=== PATIENT | male | born 1930 | race Caucasian/White ===

== ENCOUNTER 2017-03-18 13:00 | Emergency (ER) | payer MEDICARE, BC ==
[~2017-03-18] VITALS: Ht 175.3 cm; Wt 67.5 kg
[~2017-03-18 13:00] MED LIST: APIX2.5T PO; CALC0.25 PO; CALC1TAB87 PO; FERR150C PO; FINA5TAB2 PO; FURO1TAB62 PO; GABA100C4 PO; HYDR-4107 PO; METO25TA6 PO; MOME16.7 INH; OMEP20TA PO; POTA10TA2 PO; PRED5TAB PO; PROC20005 SQ; SPIRCAP INH; STOO100C; TERA10CA3 PO; TYLE325T PO; VENTAER INH; ZOCO20TA PO
[2017-03-18 13:06] VITALS: BP 129/60; PULSE 63; RESP 18; TEMP 97.7; O2SAT 97
[2017-03-18] MEDS ORDERED: MAGNESIUM CITRATE SOLN 300 ML BTL PO ONE (13:30)
[2017-03-18] MEDS ORDERED: GLYCERIN ADULT 2 GM SUPP RECTAL ONE (13:30)
[2017-03-18] MEDS ORDERED: MIRA3350 PO (13:46)
--- NOTE | 2017-03-18 13:47 | PD ---
HPI Chief Complaint: GI Complaint Time Seen by Provider: 13:14 Travel History International Travel<30 days: No Contact w/Intl Traveler<30days: No Traveled to known affect area: No History of Present Illness HPI Is an 86 year-old woman presents emergency department complaining that he feels stopped up and impacted. He takes pain medicines regularly and states that he usually goes to bathroom daily. He takes Colace regularly and uses suppositories or enemas once every other month or so as needed for constipation. Feels like he has to the bowel movement was unable to pass hard stools. He is on blood thinners and did note a small amount of blood. No abdominal pain or distention. No vomiting. No other complaints. History Past Medical History Narrative Medical COPD Chronic back pain Pacemaker Hypertension on hyperlipidemia CAD, history of stents On Eliquis but unclear why, denies A. fib Social History Alcohol Use: No Tobacco Use: No Allergies-Medications (Allergen,Severity, Reaction): Coded Allergies: No Known Allergies (Unverified , 03/15/17) Reported Meds & Prescriptions Reported Meds & Active Scripts Active Reported Calcium 600 with Vitamin D (Calcium Carbonate-Cholecalciferol) 600-400 mg-Unit Tab 1 Tab PO DAILY Asmanex Hfa 13 GM Inh (Mometasone 13 GM Inh) 100 Mcg/Act Inh 2 Puff INH DAILY Spiriva Handihaler (Tiotropium Inh) 18 Mcg Cap 18 Mcg INH EVERY OTHER DAY 1 capsule = 18 mcg Ventolin Hfa 18 GM Inh (Albuterol Sulfate) 90 Mcg/Act Aer 2 Puff INH PRN Prednisone 5 Mg Tab 5 Mg PO EVERY OTHER DAY Procrit Inj (Epoetin Ian) 20,000 Unit/Ml Inj 20,000 Units SQ [id number] Eliquis (Apixaban) 2.5 Mg Tab 2.5 Mg PO BID Stool Softener (Docusate Sodium) 100 Mg Cap Unknown Dose PRN Zocor (Simvastatin) 20 Mg Tab 20 Mg PO DAILY Hydrocodone-Acetaminophen 5-300 Mg Tab 1 Tab PO Q4H PRN Tylenol (Acetaminophen) 325 Mg Tab 650 Mg PO BID Metoprolol Succinate ER 24 HR (Metoprolol Succinate) 25 Mg Tab 25 Mg PO DAILY Calcitriol 0.25 Mcg Cap 0.25 Mcg PO DAILY Potassium Chloride ER (Potassium Chloride) 10 Meq Tab 10 Meq PO PRN Lasix (Furosemide) 20 Mg Tab 20 Mg PO PRN Ferrex 150 (Polysaccharide Iron Complex) 150 Mg Cap 150 Mg PO DAILY Finasteride 5 Mg Tab 5 Mg PO DAILY Do not crush. Terazosin (Terazosin HCl) 10 Mg Cap 10 Mg PO DAILY Review of Systems Except as stated in HPI: all other systems reviewed are Neg Physical Exam Narrative GENERAL: Well-appearing 86 year-old woman, no acute distress. SKIN: Focused skin assessment warm/dry. CARDIOVASCULAR: Regular rate and rhythm. No murmur appreciated. RESPIRATORY: No accessory muscle use. Clear to auscultation. Breath sounds equal bilaterally. GASTROINTESTINAL: Abdomen soft, non-tender, nondistended. Hepatic and splenic margins not palpable. MUSCULOSKELETAL: No obvious deformities. No clubbing. No cyanosis. No edema. NEUROLOGICAL: Awake and alert. No obvious cranial nerve deficits. Motor grossly within normal limits. Normal speech. PSYCHIATRIC: Appropriate mood and affect; insight and judgment normal. RECTAL: Hard stool in the rectal vault. Broken out but unable to remove much. Data Data Last Documented VS Vital Signs Date Time Temp Pulse Resp B/P (MAP) Pulse Ox O2 Delivery O2 Flow Rate FiO2 03/18/17 13:06 97.7 63 18 129/60 (83) 97 Orders Orders Glycerin Adult Supp (Glycerin Adult Supp (03/18/17 13:30) Magnesium Citrate Liq (Citroma Liq) (03/18/17 13:30) [facility] Medical Decision Making Medical Screen Exam Complete: Yes Emergency Medical Condition: Yes Differential Diagnosis Constipation, impaction, other Narrative Course Medical decision making 86-year-old man complaining of constipation symptoms. Looks well. Didn't the disimpaction the bedside. We'll treat with magnesium citrate and glycerin suppository. Diagnosis Primary Impression: Constipation Additional Instructions: Continue MiraLAX as needed until symptoms resolve. Follow-up with her primary doctor in the next 2-4 days. Med/Other Pt SpecificInfo: Prescription(s) given Scripts Polyethylene Glycol 3350 Powder (Miralax Powder) 17 Gm Powd 17 GM PO DAILY for Constipation, #1 CAN 0 Refills Mix and dissolve one measuring cap-ful (17 grams) in water or juice. Prov: Blu Chapa MD 03/18/17 Disposition: 01 DISCHARGE HOME Condition: Stable Blu Chapa MD Mar 18, 2017 13:47
== END 2017-03-18 14:30 | disposition home or self-care (01) ==
LOC: PHED 13:00
DX: K59.00 Constipation, unspecified (principal)
CPT/HCPCS: 99284

== ENCOUNTER 2017-05-02 14:13 | Observation (INO) | payer MEDICARE, BC ==
[2017-05-02] VITALS (8 sets, daily range): BP systolic 160–192; BP diastolic 71–83; PULSE 60–70; RESP 17–20; TEMP 96.4–97.8; O2SAT 96–98
[~2017-05-02] VITALS: Ht 175.3 cm; Wt 64.9 kg
[~2017-05-02 14:13] MED LIST changes: +DOCU1CAP66; -GABA100C4 PO; +METO1TAB42 PO; -METO25TA6 PO; +MIRA3350 PO; -OMEP20TA PO; -STOO100C
[2017-05-02] MEDS ORDERED: SODIUM CHLORIDE 0.9% FLUSH 10 ML FLUSH IVF PRN (14:30)
--- NOTE | 2017-05-02 14:34 | PD ---
HPI Chief Complaint: chest pain Time Seen by Provider: 14:22 Travel History International Travel<30 days: No Contact w/Intl Traveler<30days: No Traveled to known affect area: No History of Present Illness HPI This patient has been having spells of left upper chest pain for the last 5 days. They last about 1 minute and resolve. They're not exertional. They feel like an aching. He had a spell about a half hour ago while he was in the dentist office and they sent him here. He is currently pain-free. History of ND in 1 stent placed 12 years ago. He denies any stress testing or catheterization over the last several years. No alleviating factors. No exacerbating factors. Pain is of moderate severity. PFSH Past Medical History Hx Anticoagulant Therapy: Yes (Eliquis) Cancer: No Cardiovascular Problems: Yes (HTN, ND, pacemaker) High Cholesterol: Yes COPD: Yes Diabetes: No Endocrine: No Gastrointestinal Disorders: Yes (HX GASTRIC ULCER) Genitourinary: Yes (BPH) Hepatitis: No Hiatal Hernia: Yes Hypertension: Yes Immune Disorder: No Musculoskeletal: Yes (LOWER BACK ; ARTHRITIS; LEFT LEG PAIN) Neurologic: No Psychiatric: No Reproductive: No Respiratory: Yes (COPD) Thyroid Disease: No Past Surgical History Abdominal Surgery: Yes (COLON RESECTION 10/12) AICD: No Body Medical Devices: CARDIAC STENT Cardiac Surgery: Yes (CARDIAC STENT 10/07 ; [id number]) Eye Surgery: Yes (BILATERAL CATARACT SX) Joint Replacement: No Oral Surgery: Yes (EGD 04/16 ; T&A (ADULT)) Pacemaker: Yes Other Surgery: Yes Social History Alcohol Use: No Tobacco Use: No Substance Use: No Allergies-Medications (Allergen,Severity, Reaction): Coded Allergies: No Known Allergies (Unverified Allergy, Unknown, 04/26/17) Reported Meds & Prescriptions Reported Meds & Active Scripts Active Miralax Powder (Polyethylene Glycol 3350 Powder) 17 Gm Powd 17 Gm PO DAILY Mix and dissolve one measuring cap-ful (17 grams) in water or juice. Reported Calcium 600 with Vitamin D (Calcium Carbonate-Cholecalciferol) 600-400 mg-Unit Tab 1 Tab PO DAILY Spiriva Handihaler (Tiotropium Inh) 18 Mcg Cap 18 Mcg INH EVERY OTHER DAY 1 capsule = 18 mcg Ventolin Hfa 18 GM Inh (Albuterol Sulfate) 90 Mcg/Act Aer 2 Puff INH PRN Prednisone 5 Mg Tab 5 Mg PO EVERY OTHER DAY Procrit Inj (Epoetin Ian) 20,000 Unit/Ml Inj 20,000 Units SQ [id number] Eliquis (Apixaban) 2.5 Mg Tab 2.5 Mg PO BID Stool Softener (Docusate Sodium) 100 Mg Cap Unknown Dose PRN Zocor (Simvastatin) 20 Mg Tab 20 Mg PO DAILY Hydrocodone-Acetaminophen 5-300 Mg Tab 1 Tab PO Q4H PRN Tylenol (Acetaminophen) 325 Mg Tab 650 Mg PO BID Metoprolol Succinate ER 24 HR (Metoprolol Succinate) 25 Mg Tab 25 Mg PO DAILY Calcitriol 0.25 Mcg Cap 0.25 Mcg PO DAILY Potassium Chloride ER (Potassium Chloride) 10 Meq Tab 10 Meq PO PRN Lasix (Furosemide) 20 Mg Tab 20 Mg PO PRN Ferrex 150 (Polysaccharide Iron Complex) 150 Mg Cap 150 Mg PO DAILY Finasteride 5 Mg Tab 5 Mg PO DAILY Do not crush. Terazosin (Terazosin HCl) 10 Mg Cap 10 Mg PO DAILY Review of Systems General / Constitutional: No: Fever Eyes: No: Visual changes HENT: No: Headaches Cardiovascular: Positive: Chest Pain or Discomfort Respiratory: No: Shortness of Breath Gastrointestinal: No: Abdominal Pain Genitourinary: No: Dysuria Musculoskeletal: No: Pain Skin: No Rash Neurologic: No: Weakness Psychiatric: No: Depression Endocrine: No: Polydipsia Hematologic/Lymphatic: No: Easy Bruising Physical Exam Narrative GENERAL: Well-nourished, well-developed patient in no apparent distress. SKIN: Focused skin assessment reveals no rash and nodules. Skin is Warm and dry. HEAD: Atraumatic. Normocephalic. EYES: Pupils equal and round. No scleral icterus. No injection or drainage. ENT: No nasal bleeding or discharge. Mucous membranes pink and moist. NECK: Trachea midline. No JVD. CARDIOVASCULAR: Regular rate and rhythm. No murmur appreciated. RESPIRATORY: No accessory muscle use. Clear to auscultation. Breath sounds equal bilaterally. GASTROINTESTINAL: Abdomen soft, non-tender, nondistended. Hepatic and splenic margins not palpable. MUSCULOSKELETAL: No obvious deformities. No clubbing. No cyanosis. No edema. NEUROLOGICAL: Awake and alert. No obvious cranial nerve deficits. Motor grossly within normal limits. Normal speech. PSYCHIATRIC: Appropriate mood and affect; insight and judgment normal. Data Data Last Documented VS Vital Signs Date Time Temp Pulse Resp B/P (MAP) Pulse Ox O2 Delivery O2 Flow Rate FiO2 05/02/17 15:32 60 18 160/71 (100) 98 Room Air 05/02/17 14:20 97.8 Orders Orders Electrocardiogram (05/02/17 14:28) Basic Metabolic Panel (Bmp) (05/02/17 14:28) Ckmb (Isoenzyme) Profile (05/02/17 14:28) Complete Blood Count With Diff (05/02/17 14:28) Troponin I (05/02/17 14:28) Chest, Single Ap (05/02/17 14:28) Ecg Monitoring (05/02/17 14:28) Iv Access Insert/Monitor (05/02/17 14:28) Oximetry (05/02/17 14:28) Sodium Chloride 0.9% Flush (Ns Flush) (05/02/17 14:30) Admit Order (Ed Use Only) (05/02/17 15:49) Labs Laboratory Tests Test 05/02/17 14:50 White Blood Count 7.9 TH/MM3 Red Blood Count 3.40 MIL/MM3 Hemoglobin 10.8 GM/DL Hematocrit 33.1 % Mean Corpuscular Volume 97.4 FL Mean Corpuscular Hemoglobin 31.6 PG Mean Corpuscular Hemoglobin Concent 32.5 % Red Cell Distribution Width 13.9 % Platelet Count 193 TH/MM3 Mean Platelet Volume 7.6 FL Neutrophils (%) (Auto) 82.1 % Lymphocytes (%) (Auto) 10.5 % Monocytes (%) (Auto) 4.3 % Eosinophils (%) (Auto) 0.5 % Basophils (%) (Auto) 2.6 % Neutrophils # (Auto) 6.6 TH/MM3 Lymphocytes # (Auto) 0.8 TH/MM3 Monocytes # (Auto) 0.3 TH/MM3 Eosinophils # (Auto) 0.0 TH/MM3 Basophils # (Auto) 0.2 TH/MM3 CBC Comment DIFF FINAL Differential Comment Blood Urea Nitrogen 21 MG/DL Creatinine 1.90 MG/DL Random Glucose 149 MG/DL Calcium Level 8.7 MG/DL Sodium Level 137 MEQ/L Potassium Level 4.2 MEQ/L Chloride Level 103 MEQ/L Carbon Dioxide Level 25.4 MEQ/L Anion Gap 9 MEQ/L Estimat Glomerular Filtration Rate 34 ML/MIN Total Creatine Kinase 48 U/L Troponin I LESS THAN 0.02 NG/ML MDM Medical Decision Making Medical Screen Exam Complete: Yes Emergency Medical Condition: Yes Medical Record Reviewed: Yes Differential Diagnosis Differential diagnosis includes ND, angina, pericarditis, pleurisy, GERD, anxiety. Narrative Course I have reviewed the patient's electronic medical record. Reviewed his visit from last month for constipation IV placed I reviewed the EKG shows paced rhythm without acute ST elevation or ectopy I reviewed the chest x-ray which is normal Extended cardiac monitoring shows paced rhythm without ectopy CBC is normal Metabolic profile shows renal sufficiency CK is normal Troponin is normal Patient is anticoagulated with Eliquis Patient has history of CAD and now having atypical chest pain spells. He will be a 23 hour observation on telemetry in the chest pain center in order to rule out cardiac cause of his symptoms. Hospitalist has been paged to discuss. Diagnosis Primary Impression: Chest pain in adult Additional Impressions: Cardiac pacemaker Coronary artery disease Qualified Codes: I25.10 - Atherosclerotic heart disease of [place] coronary artery without angina pectoris; I25.84 - Coronary atherosclerosis due to calcified coronary lesion Admitting Information Admitting Physician Requests: Observation Marquise Nguyen MD May 02, 2017 14:34
[2017-05-02 14:58] LABS: AUTOMATED NEUTROPHIL # 6.6 TH/MM3 (1.8-7.7); BASOPHIL # 0.2 TH/MM3 (0-0.2); BASOPHIL % 2.6 % (0.0-2.0); EOSINOPHIL % 0.5 % (0.0-4.0); HEMATOCRIT 33.1 % (39.0-51.0); LYMPH % 10.5 % (9.0-44.0); LYMPHOCYTE # 0.8 TH/MM3 (1.0-4.8); MEAN CELL VOLUME 97.4 FL (80.0-100.0); MEAN CORPUSCULAR HEMOGLOBIN 31.6 PG (27.0-34.0); MEAN CORPUSCULAR HGB CONC 32.5 % (32.0-36.0); MONO % 4.3 % (0.0-8.0); NEUT % 82.1 % (16.0-70.0); PLATELET COUNT 193 TH/MM3 (150-450); RED CELL DISTRIBUTION WIDTH 13.9 % (11.6-17.2); WHITE BLOOD COUNT 7.9 TH/MM3 (4.0-11.0)
[2017-05-02 14:59] LABS: HEMO FLAGS DIFF FINAL
[2017-05-02 15:09] LABS: CHLORIDE 103 MEQ/L (98-107); POTASSIUM 4.2 MEQ/L (3.5-5.1); SODIUM (NA) 137 MEQ/L (136-145)
[2017-05-02 15:12] LABS: ANION GAP 9 MEQ/L (5-15); BICARBONATE 25.4 MEQ/L (21.0-32.0)
[2017-05-02 15:13] LABS: BLOOD UREA NITROGEN 21 MG/DL (7-18)
[2017-05-02 15:16] LABS: GLOMERULAR FILTRATION RATE 34 ML/MIN (>89)
--- NOTE | 2017-05-02 15:19 | RADRPT ---
EXAM DATE/TIME: 05/02/2017 14:42 [facility] COMPARISON: No previous studies available for comparison. INDICATIONS : Chest pain, nausea. MEDICAL HISTORY : None. SURGICAL HISTORY : Pacemaker. Coronary artery stent. ENCOUNTER: Initial ACUITY: 1 day PAIN SCORE: 3/10 LOCATION: Left chest FINDINGS: A single view of the chest demonstrates the lungs to be symmetrically aerated without evidence of mas s, infiltrate or effusion. Dual-lead pacemaker in place. The cardiomediastinal contours are unremark able. Osseous structures are intact. CONCLUSION: 1. No acute cardiopulmonary disease. Jayy Phelps MD on May 02, 2017 at 15:16 Board Certified Radiologist. This report was verified electronically.
[2017-05-02 15:23] LABS: CREATINE KINASE 48 U/L (39-308)
[2017-05-02] MEDS ORDERED: ACETAMINOPHEN 325 MG TAB PO PRN (16:00)
[2017-05-02] MEDS ORDERED: ONDANSETRON HCL 4 MG/2 ML VIAL IVP PRN (16:00)
[2017-05-02] MEDS ORDERED: MAGNESIUM HYDROXIDE SUSP 30 ML CUP PO PRN (16:00)
[2017-05-02] MEDS ORDERED: SENNOSIDES 8.6 MG TAB PO PRN (16:00)
[2017-05-02] MEDS ORDERED: BISACODYL 10 MG SUPP RECTAL PRN (16:00)
[2017-05-02] MEDS ORDERED: NALOXONE HCL 0.4 MG/ML AMP IV PUSH PRN (16:00)
[2017-05-02] MEDS ORDERED: SODIUM CHLORIDE 0.9% FLUSH 10 ML FLUSH IV FLUSH PRN (16:00)
--- NOTE | 2017-05-02 16:38 | HHI.HP ---
[facility] Service [facility] Primary Care Physician Yanick Payton M.D. Admission Diagnosis Chest pain Diagnoses: (1) Chest pain in adult Chief Complaint: Chest pain Travel History International Travel<30 Days: No Contact w/Intl Traveler <30 Da: No Traveled to Known Affected Are: No History of Present Illness Mr. Walls is an 86-year-old male patient with a known medical history of CAD with CA and stent placement, pacemaker placement, dyslipidemia and COPD who presented to the ED with complaints of chest pain and nausea. Patient states that he has been nauseous intermittently for the last 5 days with one bout of nausea. He states while at the dentist today the nausea became worse and he developed a stabbing sensation in his left chest. The pain came on suddenly, lasted roughly 1 minute and then subsided, rated a 2/10 on pain scale with no known aggravating or relieving factors, denies any radiation of pain. No reproducible chest pain or discomfort to palpation. Denies any recent illness including fever, chills, cough, headache, shortness of breath, abdominal pain, diarrhea or dysuria. Does admit to a poor appetite recently. Patient did undergo stent placement for CA 12 years ago and also a pacemaker placement in 2011. Follow[address] Victoria in the outpatient setting, was last seen in December 2016 and at that time an ECHO was performed as well as recommendations for a stress test prior to an elective surgery patient was going to have. At that time patient refused chemical stress test, denies any prior cardiac stress testing. At the time of assessment patient denies any chest pain but does state it comes and goes. Review of Systems Constitutional: DENIES: Fever, Chills Eyes: DENIES: Blurred vision Ears, nose, mouth, throat: DENIES: Throat pain Respiratory: DENIES: Cough, Shortness of breath Cardiovascular: COMPLAINS OF: Chest pain, Palpitations Gastrointestinal: COMPLAINS OF: Constipation, Nausea, DENIES: Abdominal pain, Black stools, Diarrhea, Vomiting Genitourinary: DENIES: Urinary frequency Musculoskeletal: DENIES: Joint pain, Back pain, Neck pain Psychiatric: DENIES: Anxiety Except as stated in HPI: all other systems reviewed are Neg Past Family Social History Past Medical History CAD with CA history and stent placement Pacemaker placement for bradycardia Dyslipidemia History of duodenal ulcer COPD BPH Chronic lower back pain Arthritis Hypertension Past Surgical History Colon resection in 2010 Pacemaker insertion EGD 2-12 Bilateral cataracts Reported Medications Active Miralax Powder (Polyethylene Glycol 3350 Powder) 17 Gm Powd 17 Gm PO DAILY Mix and dissolve one measuring cap-ful (17 grams) in water or juice. Reported Calcium 600 with Vitamin D (Calcium Carbonate-Cholecalciferol) 600-400 mg-Unit Tab 1 Tab PO DAILY Spiriva Handihaler (Tiotropium Inh) 18 Mcg Cap 18 Mcg INH EVERY OTHER DAY 1 capsule = 18 mcg Ventolin Hfa 18 GM Inh (Albuterol Sulfate) 90 Mcg/Act Aer 2 Puff INH PRN Prednisone 5 Mg Tab 5 Mg PO EVERY OTHER DAY Procrit Inj (Epoetin Ian) 20,000 Unit/Ml Inj 20,000 Units SQ [id number] Eliquis (Apixaban) 2.5 Mg Tab 2.5 Mg PO BID Stool Softener (Docusate Sodium) 100 Mg Cap Unknown Dose PRN Zocor (Simvastatin) 20 Mg Tab 20 Mg PO DAILY Hydrocodone-Acetaminophen 5-300 Mg Tab 1 Tab PO Q4H PRN Tylenol (Acetaminophen) 325 Mg Tab 650 Mg PO BID Metoprolol Succinate ER 24 HR (Metoprolol Succinate) 25 Mg Tab 25 Mg PO DAILY Calcitriol 0.25 Mcg Cap 0.25 Mcg PO DAILY Potassium Chloride ER (Potassium Chloride) 10 Meq Tab 10 Meq PO PRN Lasix (Furosemide) 20 Mg Tab 20 Mg PO PRN Ferrex 150 (Polysaccharide Iron Complex) 150 Mg Cap 150 Mg PO DAILY Finasteride 5 Mg Tab 5 Mg PO DAILY Do not crush. Terazosin (Terazosin HCl) 10 Mg Cap 10 Mg PO DAILY Allergies: Coded Allergies: No Known Allergies (Unverified Allergy, Unknown, 04/26/17) Active Ordered Medications Current Medications Medications (Trade) Dose Ordered Sig/Stefan Route Start Time Stop Time Status Last Admin (NS Flush) 2 ml UNSCH PRN IVF 05/02/17 14:30 (NS Flush) 2 ml UNSCH PRN IV FLUSH 05/02/17 16:00 UNV (NS Flush) 2 ml BID IV FLUSH 05/02/17 21:00 UNV (Tylenol) 650 mg Q4H PRN PO 05/02/17 16:00 UNV (Zofran Inj) 4 mg Q6H PRN IVP 05/02/17 16:00 UNV (Narcan Inj) 0.4 mg UNSCH PRN IV PUSH 05/02/17 16:00 UNV (Rossy-Colace) 1 tab BID PO 05/02/17 21:00 UNV (Milk Of Magnesia Liq) 30 ml Q12H PRN PO 05/02/17 16:00 UNV (Senokot) 17.2 mg Q12H PRN PO 05/02/17 16:00 UNV (Dulcolax Supp) 10 mg DAILY PRN RECTAL 05/02/17 16:00 UNV (Spiriva Inh) 18 mcg EVERY OTHER DAY INH 05/04/17 09:00 UNV Family History Denies any significant family medical history. Social History Denies any current tobacco use, quit cigarette smoking 15 years ago. Admits to occasional alcohol intake. Denies any illicit drug use. Physical Exam Vital Signs Vital Signs Date Time Temp Pulse Resp B/P (MAP) Pulse Ox O2 Delivery O2 Flow Rate FiO2 05/02/17 15:32 60 18 160/71 (100) 98 Room Air 05/02/17 14:41 18 98 Room Air 05/02/17 14:20 97.8 60 18 179/81 (113) 98 Physical Exam GENERAL: This is a well-nourished, well-developed male patient, lying in bed in no apparent distress. SKIN: No rashes, ecchymoses or lesions. Warm and dry. HEENT: Atraumatic. Normocephalic. No temporal or scalp tenderness. Pupils equal round and reactive. Extraocular motions intact. No scleral icterus. No injection or drainage. Nose without bleeding. Throat without erythema, tonsillar hypertrophy or exudate. Uvula midline. Airway patent. NECK: Trachea midline. No JVD. Supple. CARDIOVASCULAR: Regular rate and rhythm. No gallops or rubs. 2/6 systolic murmur noted. RESPIRATORY: Clear to auscultation. Breath sounds equal bilaterally. No wheezes , rales, or rhonchi. GASTROINTESTINAL: Abdomen soft, non-tender, nondistended. No guarding. MUSCULOSKELETAL: Extremities without clubbing, cyanosis, or edema. No joint tenderness, effusion, or edema noted. NEUROLOGICAL: Awake and alert. Cranial nerves II through XII intact. Motor and sensory grossly within normal limits. Five out of 5 muscle strength in all muscle groups. Normal speech. Laboratory Laboratory Tests Test 05/02/17 14:50 White Blood Count 7.9 Red Blood Count 3.40 Hemoglobin 10.8 Hematocrit 33.1 Mean Corpuscular Volume 97.4 Mean Corpuscular Hemoglobin 31.6 Mean Corpuscular Hemoglobin Concent 32.5 Red Cell Distribution Width 13.9 Platelet Count 193 Mean Platelet Volume 7.6 Neutrophils (%) (Auto) 82.1 Lymphocytes (%) (Auto) 10.5 Monocytes (%) (Auto) 4.3 Eosinophils (%) (Auto) 0.5 Basophils (%) (Auto) 2.6 Neutrophils # (Auto) 6.6 Lymphocytes # (Auto) 0.8 Monocytes # (Auto) 0.3 Eosinophils # (Auto) 0.0 Basophils # (Auto) 0.2 CBC Comment DIFF FINAL Differential Comment Blood Urea Nitrogen 21 Creatinine 1.90 Random Glucose 149 Calcium Level 8.7 Sodium Level 137 Potassium Level 4.2 Chloride Level 103 Carbon Dioxide Level 25.4 Anion Gap 9 Estimat Glomerular Filtration Rate 34 Total Creatine Kinase 48 Troponin I LESS THAN 0.02 Result Diagram: 05/02/17 1450 05/02/17 1450 Imaging Last Impressions Chest X-Ray 05/02/17 1428 Signed Impressions: Service Date/Time: Tuesday, May 02, 2017 14:42 - CONCLUSION: 1. No acute cardiopulmonary disease. MD Guicho Harman VTE Risk Assessment Caprini VTE Risk Assessment: Mod/High Risk (score >= 2) Caprini Risk Assessment Model Point Value = 1 Point Value = 2 Point Value = 3 Point Value = 5 Age 41-60 Minor surgery BMI > 25 kg/m2 Swollen legs Varicose veins or History of unexplained or recurrent spontaneous Oral contraceptives or hormone replacement Sepsis (< 1 month) Serious lung disease, including pneumonia (< 1 month) Abnormal pulmonary function Acute myocardial infarction Congestive heart failure (< 1 month) History of inflammatory bowel disease Medical patient at bed rest Age 61-74 Arthroscopic surgery Major open surgery (> 45 min) Laparoscopic surgery (> 45 min) Malignancy Confined to bed (> 72 hours) Immobilizing plaster cast Central venous access Age >= 75 History of VTE Family history of VTE Factor V Leiden Prothrombin [id number] Lupus anticoagulant Anticardiolipin antibodies Elevated serum homocysteine Heparin-induced thrombocytopenia Other congenital or acquired thrombophilia Stroke (< 1 month) Elective arthroplasty Hip, pelvis, or leg fracture Acute spinal cord injury (< 1 month) Prophylaxis Regimen Total Risk Factor Score Risk Level Prophylaxis Regimen 0-1 Low Early ambulation 2 Moderate Order ONE of the following: *Sequential Compression Device (SCD) *Heparin 5000 units SQ BID 3-4 Higher Order ONE of the following medications: *Heparin 5000 units SQ TID *Enoxaparin/Lovenox 40 mg SQ daily (WT < 150 kg, CrCl > 30 mL/min) *Enoxaparin/Lovenox 30 mg SQ daily (WT < 150 kg, CrCl > 10-29 mL/min) *Enoxaparin/Lovenox 30 mg SQ BID (WT < 150 kg, CrCl > 30 mL/min) AND/OR *Sequential Compression Device (SCD) 5 or more Highest Order ONE of the following medications: *Heparin 5000 units SQ TID (Preferred with Epidurals) *Enoxaparin/Lovenox 40 mg SQ daily (WT < 150 kg, CrCl > 30 mL/min) *Enoxaparin/Lovenox 30 mg SQ daily (WT < 150 kg, CrCl > 10-29 mL/min) *Enoxaparin/Lovenox 30 mg SQ BID (WT < 150 kg, CrCl > 30 mL/min) AND *Sequential Compression Device (SCD) Assessment and Plan Problem List: (1) Chest pain in adult ICD Code: R07.9 - Chest pain, unspecified Status: Acute Plan: Patient has been admitted to the chest pain center. Serial EKGs and serial troponins have been ordered for ruling out ACS purposes. Initial troponin flat, follow trends. CXR reviewed showing no acute cardiopulmonary disease. Continue cardiac telemetry to rule out any arrhythmias. Heart healthy diet. Plan for NPO after midnight. If ACS ruled out by serial EKGs and troponins, will undergo a chemical cardiac stress test tomorrow morning. Further hospitalization and treatment will depend on nuclear imaging results. Continue to follow. Supplement O2 to keep sats >92%. Zofran available PRN for nausea. (2) Hypertension ICD Code: I10 - Essential (primary) hypertension Status: Chronic Plan: Bp elevated on presentation, systolic in the 170's. Continue home Hytrin and Metoprolol, continue Lasix and potassium supplementation. Continue to monitor BP trend. Clonidine PRN. (3) Chronic kidney disease (CKD) ICD Code: N18.9 - Chronic kidney disease, unspecified Status: Chronic Plan: Creatinine 1.9 and GFR 34 on presentation. According to this is patient's baseline. Follows with Dr. Shelton in the outpatient setting for CKD. Supportive care. Recheck BMP in am, follow. (4) Iron deficiency anemia ICD Code: D50.9 - Iron deficiency anemia, unspecified Status: Chronic Plan: Continue home iron supplementation. Patient receives Epogen shots q2 weeks with Dr. Shelton. (5) BPH (benign prostatic hyperplasia) ICD Code: N40.0 - Benign prostatic hyperplasia without lower urinary tract symptoms Status: Chronic Plan: Continue home Proscar and Hytrin. (6) Constipation ICD Code: K59.00 - Constipation, unspecified Plan: Rossy-colace scheduled. Senokot, Dulcolax and Milk of magnesium available PRN. (7) COPD (chronic obstructive pulmonary disease) ICD Code: J44.9 - Chronic obstructive pulmonary disease, unspecified Status: Chronic Plan: Continue home Spiriva. Duonebs available PRN as needed. DVT Prophylaxis: VIDYAs. Lourdes Ornelas May 02, 2017 16:38
[2017-05-02] MEDS ORDERED: RESP: ALBUTEROL 2.5 MG/IPRATROPIUM 0.5 MG NEB (PRN) NEB (17:15)
--- NOTE | 2017-05-02 20:01 | EKG ---
Date Performed: 05/02/2017 Time Performed: 14:18:38 PTAGE: 86 years EKG: ELECTRONIC ATRIAL PACEMAKER ABNORMAL RHYTHM ECG NO PREVIOUS TRACING DOCTOR: Hi Dominguez Interpretating Date/Time 05/02/2017 20:01:17
[2017-05-02] MEDS: APIXABAN 2.5 MG TABLET PO SCH (21:16)
[2017-05-02] MEDS: DOCUSATE SODIUM 50 MG/SENNA 8.6 MG TAB PO SCH (21:16)
[2017-05-02] MEDS: cloNIDine HCL 0.1 MG TAB PO PRN (21:16)
[2017-05-02] MEDS: SODIUM CHLORIDE 0.9% FLUSH 10 ML FLUSH IV FLUSH SCH (21:17)
[2017-05-03] VITALS: BP 163/79; PULSE 60; RESP 20; TEMP 96.9; O2SAT 95
[2017-05-03 04:00] VITALS: BP 161/81; PULSE 68; RESP 20; TEMP 97.1; O2SAT 96
[2017-05-03 06:39] LABS: AUTOMATED NEUTROPHIL # 5.2 TH/MM3 (1.8-7.7); BASOPHIL # 0.1 TH/MM3 (0-0.2); BASOPHIL % 1.2 % (0.0-2.0); EOSINOPHIL # 0.3 TH/MM3 (0-0.4); EOSINOPHIL % 3.6 % (0.0-4.0); HEMATOCRIT 31.6 % (39.0-51.0); HEMO FLAGS DIFF FINAL; LYMPH % 19.9 % (9.0-44.0); LYMPHOCYTE # 1.6 TH/MM3 (1.0-4.8); MEAN CELL VOLUME 94.8 FL (80.0-100.0); MEAN CORPUSCULAR HGB CONC 32.7 % (32.0-36.0); NEUT % 63.3 % (16.0-70.0); PLATELET COUNT 169 TH/MM3 (150-450); RED BLOOD COUNT 3.34 MIL/MM3 (4.50-5.90); RED CELL DISTRIBUTION WIDTH 13.4 % (11.6-17.2); WHITE BLOOD COUNT 8.2 TH/MM3 (4.0-11.0)
[2017-05-03 06:55] LABS: CHLORIDE 105 MEQ/L (98-107); POTASSIUM 3.9 MEQ/L (3.5-5.1); SODIUM (NA) 142 MEQ/L (136-145)
[2017-05-03 07:00] LABS: ANION GAP 8 MEQ/L (5-15); BICARBONATE 28.6 MEQ/L (21.0-32.0); BLOOD UREA NITROGEN 20 MG/DL (7-18)
[2017-05-03 07:03] LABS: ALT (GPT) 13 U/L (12-78); AST (GOT) 10 U/L (15-37); GLOMERULAR FILTRATION RATE 36 ML/MIN (>89)
[2017-05-03 07:05] LABS: TOTAL BILIRUBIN ADULT 0.4 MG/DL (0.2-1.0)
[2017-05-03 07:06] LABS: ALKALINE PHOSPHATASE 47 U/L (45-117)
[2017-05-03 08:00] VITALS: BP 199/89; PULSE 73; RESP 20; TEMP 97.3; O2SAT 95
[2017-05-03] MEDS: cloNIDine HCL 0.1 MG TAB PO PRN (08:44)
[2017-05-03] MEDS: APIXABAN 2.5 MG TABLET PO SCH (08:46)
[2017-05-03] MEDS: DOCUSATE SODIUM 50 MG/SENNA 8.6 MG TAB PO SCH (08:46)
[2017-05-03] MEDS: SODIUM CHLORIDE 0.9% FLUSH 10 ML FLUSH IV FLUSH SCH (08:47)
[2017-05-03] MEDS ORDERED: PRAVASTATIN SOD 40 MG TAB PO SCH (09:00)
[2017-05-03] MEDS ORDERED: FINASTERIDE 5 MG TAB PO SCH (09:00)
[2017-05-03] MEDS ORDERED: FUROSEMIDE 20 MG TAB PO SCH (09:00)
[2017-05-03] MEDS ORDERED: METOPROLOL SUCCINATE 25 MG EXTENDED RELEASE TAB PO SCH (09:00)
[2017-05-03] MEDS ORDERED: POTASSIUM CHLORIDE 10 MEQ CONTROLLED RELEASE TAB PO SCH (09:00)
[2017-05-03] MEDS ORDERED: TERAZOSIN HCL 5 MG CAP PO SCH (09:00)
[2017-05-03] MEDS ORDERED: POLYSACCHARIDE IRON COMPLEX 150 MG CAP PO SCH (09:00)
--- NOTE | 2017-05-03 11:36 | RADRPT ---
EXAM DATE/TIME: 05/03/2017 09:56 [facility] COMPARISON: No previous studies available for comparison. INDICATIONS : Left sided chest pain with nausea. Angina. Coronary artery disease. DOSE: 27.1 mCi Tc99m Myoview at stress. 8.6 mCi Tc99m Myoview at rest. 0.4 mg Lexiscan STRESS SYMPTOMS: Stomach pain. EJECTION FRACTION: 52% MEDICAL HISTORY : Hypertension. Chronic obstructive pulmonary disease. Myocardial infarction. SURGICAL HISTORY : Colon resection. Pacemaker. Coronary artery stent. ENCOUNTER: Initial ACUITY: 1 day PAIN SCALE: 5/10 LOCATION: Left chest TECHNIQUE: The patient underwent pharmacologic stress with infusion of prescribed dose. Continuous ECG tracing was monitored during stress. Gated SPECT imaging was performed after stress and conventional SPECT i maging was performed at rest. The examination was performed on a SPECT/CT scanner, both attenuation and non-corrected datasets were reviewed. FINDINGS: DISTRIBUTION: The maximum perfused segment at stress is in the anterolateral wall. PERFUSION STUDY: Is mildly diminished relative perfusion involving the posterobasal/posterolateral wall without eviden ce of redistribution GATED STUDY: There is intact wall motion and thickening without hypokinetic or dyskinetic segments. CONCLUSION: Mild fixed posterobasal perfusion abnormality without evidence of ischemia RISK CATEGORY: Low (<1% Annual Mortality Rate) Moises Salguero MD on May 03, 2017 at 11:28 Board Certified Radiologist. This report was verified electronically.
[2017-05-03 12:00] VITALS: BP 172/74; PULSE 61; RESP 20; TEMP 97.3; O2SAT 96
[2017-05-03] MEDS ORDERED: AMLO5TAB2 PO (12:12)
[2017-05-03] MEDS ORDERED: amLODIPine BESYLATE 5 MG TAB PO ONE (12:15)
--- NOTE | 2017-05-03 12:18 | HHI.PR ---
Subjective Remarks Follow up chest pain. Patient seen and examined lying in bed comfortably post Nuclear stress test. Awake and alert, oriented x 3. Denies any chest pain today. Denies any further nausea or vomiting. Requesting to eat. Afebrile. BP elevated today. Reviewed results of nuclear stress test with patient. All questions answered. Objective Vitals Vital Signs Date Time Temp Pulse Resp B/P (MAP) Pulse Ox O2 Delivery O2 Flow Rate FiO2 05/03/17 08:00 97.3 73 20 199/89 (125) 95 05/03/17 04:00 97.1 68 20 161/81 (107) 96 05/03/17 00:00 96.9 60 20 163/79 (107) 95 05/02/17 20:55 97 21 05/02/17 20:00 96.8 69 20 192/79 (116) 96 05/02/17 18:25 96.4 60 17 180/83 (115) 97 05/02/17 17:33 70 05/02/17 17:07 05/02/17 16:56 60 18 170/78 (108) 98 Room Air 05/02/17 15:32 60 18 160/71 (100) 98 Room Air 05/02/17 14:41 18 98 Room Air 05/02/17 14:20 97.8 60 18 179/81 (113) 98 I/O 05/02/17 05/02/17 05/02/17 05/03/17 05/03/17 05/03/17 07:00 15:00 23:00 07:00 15:00 23:00 Intake Total 200 ml 240 ml Balance 200 ml 240 ml Intake Oral 200 ml 240 ml # Voids 5 # Bowel Movements 0 Result Diagram: 05/03/17 0612 05/03/17 0612 Imaging Last Impressions Myocardial Perfusion Scan Nuc Med 05/03/17 0000 Signed Impressions: Service Date/Time: Wednesday, May 03, 2017 09:56 - CONCLUSION: Mild fixed posterobasal perfusion abnormality without evidence of ischemia RISK CATEGORY : Low (<1%% Annual Mortality Rate) Moises Salguero MD Chest X-Ray 05/02/17 1428 Signed Impressions: Service Date/Time: Tuesday, May 02, 2017 14:42 - CONCLUSION: 1. No acute cardiopulmonary disease. Jayy Phelps MD Objective Remarks GENERAL: This is a well-nourished, well-developed male patient, lying in bed in no apparent distress. SKIN: No rashes, ecchymoses or lesions. Warm and dry. HEENT: Atraumatic. Normocephalic. No temporal or scalp tenderness. Pupils equal round and reactive. Extraocular motions intact. No scleral icterus. No injection or drainage. Nose without bleeding. Throat without erythema, tonsillar hypertrophy or exudate. Uvula midline. Airway patent. NECK: Trachea midline. No JVD. Supple. CARDIOVASCULAR: Regular rate and rhythm. No gallops or rubs. RESPIRATORY: Clear to auscultation. Breath sounds equal bilaterally. No wheezes , rales, or rhonchi. GASTROINTESTINAL: Abdomen soft, non-tender, nondistended. No guarding. MUSCULOSKELETAL: Extremities without clubbing, cyanosis, or edema. No joint tenderness, effusion, or edema noted. NEUROLOGICAL: Awake and alert. Cranial nerves II through XII intact. Motor and sensory grossly within normal limits. Five out of 5 muscle strength in all muscle groups. Normal speech. A/P Problem List: (1) Chest pain in adult ICD Code: R07.9 - Chest pain, unspecified Status: Acute Plan: Patient has been admitted to the chest pain center. Serial EKGs and serial troponins have been ordered for ruling out ACS purposes which are all unremarkable. Serial troponin flat. CXR reviewed showing no acute cardiopulmonary disease. No arrhythmias noted on cardiac telemetry overnight. Continue heart healthy diet. Underwent a chemical cardiac stress test this morning with an EF 52%. No ischemia noted. (2) Hypertension ICD Code: I10 - Essential (primary) hypertension Status: Chronic Plan: Bp elevated on presentation, systolic in the 170's, continued to be elevated. Continue home Hytrin and Metoprolol, continue Lasix and potassium supplementation. Added amlodipine to regimen. Encouraged to monitor BP at home and f.u PCP. (3) Chronic kidney disease (CKD) ICD Code: N18.9 - Chronic kidney disease, unspecified Status: Chronic Plan: Creatinine 1.9 and GFR 34 on presentation, BMP reviewed today showing 1.[address] Shelton in the outpatient setting for CKD. Supportive care. (4) Iron deficiency anemia ICD Code: D50.9 - Iron deficiency anemia, unspecified Status: Chronic Plan: Continue home iron supplementation. Patient receives Epogen shots q2 weeks with Dr. Shelton. (5) BPH (benign prostatic hyperplasia) ICD Code: N40.0 - Benign prostatic hyperplasia without lower urinary tract symptoms Status: Chronic Plan: Continue home Proscar and Hytrin. (6) Constipation ICD Code: K59.00 - Constipation, unspecified Plan: Continue home bowel regimen. (7) COPD (chronic obstructive pulmonary disease) ICD Code: J44.9 - Chronic obstructive pulmonary disease, unspecified Status: Chronic Plan: Continue home Spiriva. Duonebs available PRN as needed. DVT Prophylaxis: SCDs. Eliquis. Discharge Planning Will discharge home today with recommendations to f/u with PCP, GI and cardiology in the outpatient setting. Lourdes Aceves May 03, 2017 12:18
--- NOTE | 2017-05-03 12:19 | HHI.DCPOC ---
Discharge Care Plan Diagnosis: (1) Hypertension (2) Chest pain in adult (3) COPD (chronic obstructive pulmonary disease) (4) Iron deficiency anemia (5) Chronic kidney disease (CKD) (6) BPH (benign prostatic hyperplasia) (7) Constipation Goals to Promote Your Health * To prevent worsening of your condition and complications * To maintain your health at the optimal level Directions to Meet Your Goals Take your medications as prescribed Follow your dietary instruction Follow activity as directed Keep your appointments as scheduled Take your immunizations and boosters as scheduled If your symptoms worsen call your PCP, if no PCP go to Urgent Care Center or Emergency Room Smoking is Dangerous to Your Health. Avoid second hand smoke Call the 24-hour hour crisis hotline for domestic abuse at Lourdes Aceves May 03, 2017 12:18
--- NOTE | 2017-05-03 13:55 | EKG ---
Date Performed: 05/02/2017 Time Performed: 19:26:27 PTAGE: 86 years EKG: ELECTRONIC ATRIAL PACEMAKER ABNORMAL RHYTHM ECG PREVIOUS TRACING : 05/02/2017 14.18 Since previous tracing, no significant change noted DOCTOR: Carlo Tony Interpretating Date/Time 05/03/2017 13:53:55
--- NOTE | 2017-05-03 13:55 | EKG ---
Date Performed: 05/02/2017 Time Performed: 21:13:11 PTAGE: 86 years EKG: ELECTRONIC ATRIAL PACEMAKER ABNORMAL RHYTHM ECG PREVIOUS TRACING : 05/02/2017 19.26 Since previous tracing, no significant change noted DOCTOR: Carlo Tony Interpretating Date/Time 05/03/2017 13:53:43
[2017-05-03] MEDS ORDERED: REGADENOSON INJ 0.4 MG/5 ML SYR IV ONE (15:51)
--- NOTE | 2017-05-03 16:44 | TR ---
Date Performed: 05/03/2017 Time Performed: 10:24:41 DOCTOR: Carlo Tony DRUG LIST: CLINICAL HISTORY: REASON FOR TEST: Chest pain REASON FOR ENDING: OBSERVATION: CONCLUSION: Lexiscan stress test was performed under standard four minute protocol. Radionuclid e was injected one minute prior to ending the test. No electrocardiographic abormalities were present to suggest ischemia. Nuclear imaging and interpretation are pending. COMMENTS:
[2017-05-04] MEDS ORDERED: TIOTROPIUM BROMIDE 18 MCG INH INH SCH (09:00)
== END 2017-05-03 13:33 | disposition home or self-care (01) ==
LOC: PHED 14:13 → PHEDA 15:50 → PH3B 17:00
PROVIDERS: ADMIT Hospitalist; ATTEND Hospitalist
DX: R07.9 Chest pain, unspecified (principal); I25.10 Atherosclerotic heart disease of native coronary artery without angina pectoris; I12.9 Hypertensive chronic kidney disease with stage 1 through stage 4 chronic kidney disease, or unspecified chronic kidney disease; N18.9 Chronic kidney disease, unspecified; D50.9 Iron deficiency anemia, unspecified; J44.9 Chronic obstructive pulmonary disease, unspecified; I25.2 Old myocardial infarction; E78.5 Hyperlipidemia, unspecified; N40.0 Benign prostatic hyperplasia without lower urinary tract symptoms; K59.00 Constipation, unspecified; Z87.11 Personal history of peptic ulcer disease; Z95.0 Presence of cardiac pacemaker; Z95.5 Presence of coronary angioplasty implant and graft
CPT/HCPCS: 71010; 78452; 80048; 80053; 82550; 84484; 85025; 93005; 93017; 99285; A9502; G0378; J2785

== ENCOUNTER 2017-06-17 15:00 | Emergency (ER) | payer MEDICARE, BC ==
[~2017-06-17] VITALS: Ht 175.3 cm; Wt 69.5 kg
[~2017-06-17 15:00] MED LIST changes: +AMLO5TAB2 PO; -MOME16.7 INH
[2017-06-17 15:08] VITALS: BP 135/58; PULSE 78; RESP 18; TEMP 97.8; O2SAT 92
[2017-06-17] MEDS ORDERED: APIX2.5T PO (15:26)
[2017-06-17] MEDS ORDERED: FERR150C (15:26)
[2017-06-17] MEDS ORDERED: DILT120T PO (15:26)
[2017-06-17] MEDS ORDERED: DONE10TA7 PO (15:26)
[2017-06-17] MEDS ORDERED: ATOR40TA16 PO (15:26)
[2017-06-17] MEDS ORDERED: NAME10TA PO (15:26)
--- NOTE | 2017-06-17 16:10 | PD ---
HPI Chief Complaint: Pain: Acute or Chronic Time Seen by Provider: 15:39 Travel History International Travel<30 days: No Contact w/Intl Traveler<30days: No Traveled to known affect area: No History of Present Illness HPI 87-year-old male with PMH of COPD, HTN, CKD, PVD, CAD status post stenting, chronic anemia, pacemaker, lumbar disc prolapse with radiculopathy, previous laminectomy ON ELIQUIS presents to the ED for evaluation of 03/14 middle back pain, radiating down the left leg. Patient endorses numbness, tingling, weakness of the leg. He states this is chronic but also states that he's been having to use his walker for the last 3 days which is unusual for him. He is unsure about the onset of the pain. He endorses edema of the left leg for the last 3 days. No previous history of this. He states that he feels as if he has difficulty even lifting the leg. He denies calf pain, recent history of long periods of immobilization. He denies saddle anesthesia, fecal or urinary incontinence. The patient endorses diminished appetite. The patient denies fever, chills, nausea, vomiting, cough, chest pain, abdominal pain or dysuria. He saw his primary care provider yesterday and had an outpatient CT of the lumbar spine performed. He sees a pain management physician. He takes 5 mg hydrocodone up to 4 times a day as needed. Last dose just before coming in. He states that these medications are not touching the pain. is at bedside and states that the patient has some memory loss. She states that the patient has "been puny" for the last few days. He is followed by Dr. Payton PCP, Dr. Dewey Neuro. [facility] Past Medical History Hx Anticoagulant Therapy: Yes Heart Rhythm Problems: Yes Cancer: No Cardiovascular Problems: Yes (PACER,) High Cholesterol: Yes COPD: Yes Diabetes: No Endocrine: No Gastrointestinal Disorders: Yes (HX GASTRIC ULCER) Genitourinary: Yes (BPH) Hepatitis: No Hiatal Hernia: Yes Hypertension: Yes Immune Disorder: No Implanted Vascular Access Dvce: Yes Musculoskeletal: Yes (LOWER BACK ; ARTHRITIS; LEFT LEG PAIN) Neurologic: No Psychiatric: No Reproductive: No Respiratory: Yes Thyroid Disease: No Past Surgical History Abdominal Surgery: Yes (COLON RESECTION 10/12) AICD: No Body Medical Devices: CARDIAC STENT Cardiac Surgery: Yes (CARDIAC STENT 10/07 ; [id number]) Eye Surgery: Yes (BILATERAL CATARACT SX) Joint Replacement: No Oral Surgery: Yes (EGD 04/16 ; T&A (ADULT)) Pacemaker: Yes Other Surgery: Yes Social History Alcohol Use: No Tobacco Use: No Substance Use: No Allergies-Medications (Allergen,Severity, Reaction): Coded Allergies: No Known Allergies (Verified Allergy, Unknown, 06/17/17) Reported Meds & Prescriptions Reported Meds & Active Scripts Active Amlodipine (Amlodipine Besylate) 5 Mg Tab 5 Mg PO DAILY 30 Days Miralax Powder (Polyethylene Glycol 3350 Powder) 17 Gm Powd 17 Gm PO DAILY Mix and dissolve one measuring cap-ful (17 grams) in water or juice. Reported Atorvastatin (Atorvastatin Calcium) 40 Mg Tab 40 Mg PO HS Eliquis (Apixaban) 2.5 Mg Tab 2.5 Mg PO BID Diltiazem (Diltiazem HCl) 120 Mg Tab 240 Mg PO DAILY Ferrex 150 (Polysaccharide Iron Complex) 150 Mg Iron Cap Namenda (Memantine) 10 Mg Tab 10 Mg PO DAILY Donepezil 10 Mg Tab 10 Mg PO HS Calcium 600 with Vitamin D (Calcium Carbonate-Cholecalciferol) 600-400 mg-Unit Tab 1 Tab PO DAILY Prednisone 5 Mg Tab 5 Mg PO EVERY OTHER DAY Stool Softener (Docusate Sodium) 100 Mg Cap Unknown Dose PRN Metoprolol Succinate ER 24 HR (Metoprolol Succinate) 25 Mg Tab 25 Mg PO DAILY Calcitriol 0.25 Mcg Cap 0.25 Mcg PO DAILY Finasteride 5 Mg Tab 5 Mg PO DAILY Do not crush. Terazosin (Terazosin HCl) 10 Mg Cap 10 Mg PO DAILY Review of Systems Except as stated in HPI: all other systems reviewed are Neg Physical Exam Narrative GENERAL: Well-nourished, well-developed white male in no acute distress. SKIN: Focused skin assessment warm/dry. HEAD: Normocephalic. EYES: No scleral icterus. No injection or drainage. NECK: Supple, trachea midline. No JVD or lymphadenopathy. CARDIOVASCULAR: Regular rate and rhythm without murmurs, gallops, or rubs. RESPIRATORY: Breath sounds clear and equal bilaterally. No accessory muscle use. GASTROINTESTINAL: Abdomen soft, non-tender, nondistended. Active bowel sounds. No palpable masses. No pulsatile masses. MUSCULOSKELETAL: No cyanosis. 1+ edema of the left leg to the knee. Homans sign positive on the left. Palpable DP pulses bilaterally. Dopplerable pulses equal bilaterally. 5/5 strength of plantarflexion, dorsiflexion, knee and hip flexion bilaterally. BACK: Nontender without obvious deformity. No CVA tenderness. Data Data Last Documented VS Vital Signs Date Time Temp Pulse Resp B/P (MAP) Pulse Ox O2 Delivery O2 Flow Rate FiO2 06/17/17 18:18 57 18 125/57 (79) 98 Room Air 06/17/17 15:08 97.8 Orders Orders Us Leg Venous Doppler (06/17/17 16:36) ^ Insert Iv (06/17/17 16:40) Comprehensive Metabolic Panel (06/17/17 16:40) Complete Blood Count With Diff (06/17/17 16:40) Morphine Inj (Morphine Inj) (06/17/17 17:15) Cta Thor Abd Aorta W Iv C W3d (06/17/17 ) Iodixanol 320 Inj (Rad Ct) (Visipaque 32 (06/17/17 18:25) Acetamin-Hydrocod 325-5 Mg ([place] 5-325 (06/17/17 19:15) Labs Laboratory Tests Test 06/17/17 17:00 White Blood Count 10.2 TH/MM3 Red Blood Count 2.99 MIL/MM3 Hemoglobin 8.8 GM/DL Hematocrit 28.3 % Mean Corpuscular Volume 94.5 FL Mean Corpuscular Hemoglobin 29.5 PG Mean Corpuscular Hemoglobin Concent 31.2 % Red Cell Distribution Width 14.6 % Platelet Count 189 TH/MM3 Mean Platelet Volume 7.6 FL Neutrophils (%) (Auto) 73.2 % Lymphocytes (%) (Auto) 10.3 % Monocytes (%) (Auto) 14.7 % Eosinophils (%) (Auto) 1.1 % Basophils (%) (Auto) 0.7 % Neutrophils # (Auto) 7.4 TH/MM3 Lymphocytes # (Auto) 1.1 TH/MM3 Monocytes # (Auto) 1.5 TH/MM3 Eosinophils # (Auto) 0.1 TH/MM3 Basophils # (Auto) 0.1 TH/MM3 CBC Comment DIFF FINAL Differential Comment Blood Urea Nitrogen 27 MG/DL Creatinine 1.90 MG/DL Random Glucose 124 MG/DL Total Protein 7.0 GM/DL Albumin 2.9 GM/DL Calcium Level 8.7 MG/DL Alkaline Phosphatase 70 U/L Aspartate Amino Transf (AST/SGOT) 24 U/L Alanine Aminotransferase (ALT/SGPT) 18 U/L Total Bilirubin 0.6 MG/DL Sodium Level 138 MEQ/L Potassium Level 3.7 MEQ/L Chloride Level 103 MEQ/L Carbon Dioxide Level 27.8 MEQ/L Anion Gap 7 MEQ/L Estimat Glomerular Filtration Rate 34 ML/MIN [facility] Medical Decision Making Medical Screen Exam Complete: Yes Emergency Medical Condition: Yes Differential Diagnosis Acute on chronic back pain versus radiculopathy versus cauda equina syndrome versus DVT versus aortic dissection versus AAA versus other Narrative Course 87-year-old male with PMH of COPD, HTN, CKD, PVD, CAD status post stenting, chronic anemia, pacemaker, lumbar disc prolapse with radiculopathy, previous laminectomy ON ELIQUIS presents to the ED for evaluation of 10/10 middle back pain, radiating down the left leg. Patient endorses numbness, tingling, weakness of the leg. He's been having to use his walker which is unusual. He endorses edema of the left leg for the last 3 days. No previous history of this. He states that he feels as if he has difficulty even lifting the leg. He takes 5 mg hydrocodone up to 4 times a day as needed. Last dose just before coming in. He states that these medications are not touching the pain. is at bedside and states the patient has "been puny" for the last few days. He is followed by Dr. Payton PCP, Dr. Dewey Neuro. Patient is hypotensive, O2 sats 92% on room air on presentation. Physical exam reveals positive Homans sign on the left but is otherwise unremarkable. Discussed the patient with Dr. Carey. He is agreeable to evaluation for DVT and possible AAA/dissection. IV was established. Patient was administered 2 mg of morphine. Per chart review the patient had a negative stress test on 05/03/17. Outpatient CT performed 06/16/17 reveals L4 5 disc protrusion and facet arthropathy with mild to moderate canal stenosis and foraminal stenosis as well as L5-S1 mild central disc bulge without stenosis. Findings per radiology read. Patient's hemoglobin is 8.8. Chronic per chart review. I discussed this with the who states that he has labs drawn every 2 weeks and has had "hemoglobin injections" in the past. This is all managed by Dr. Payton. Last blood work 2 weeks ago, scheduled for a redraw early next week. Elevated BUN 9 creatinine , chronic according to chart review. Ultrasound of the left leg negative for DVT. CTA negative for dissection or AAA. Possible right upper lobe consolidation. Patient denies cough, fevers, shortness of breath. I doubt pneumonia. Patient and his are cautioned to return to the ED should signs and symptoms of pneumonia develop. I discussed the results of the workup with the patient and his . I recommended that the patient continue with his at- home medications, follow-up with Dr. Dewey for likely surgical intervention. They were provided a copy of the CTA report. Recommended that they discussed the results with their PCP as well. They have an appointment later this month. We discussed red flags symptoms and reasons to return to the ED. The patient and his indicated understanding of the instructions and are agreeable to the care plan. The patient is stable and discharged home. Diagnosis Primary Impression: Herniated lumbar intervertebral disc Additional Impressions: Acute exacerbation of chronic low back pain Chronic anemia Referrals: Leopoldo Dewey MD Primary Care Physician Patient Instructions: Chronic Back Pain (ED), General Instructions Additional Instructions: Rest, hydrate. Return to normal, gentle activities as tolerated. Continue at home pain medications as prescribed, as needed. Follow-up with Dr. Dewey as discussed. Follow-up with primary care provider as planned for hemoglobin check. Return to the ED immediately if you lose control of your bowel or bladder or you are unable to bear weight on the left leg. Return to the ED for any urgent or emergent medical condition. Disposition: 01 DISCHARGE HOME Condition: Stable Lorenza Johnson Jun 17, 2017 16:10
[2017-06-17 16:32] VITALS: BP 120/59
[2017-06-17 17:12] LABS: AUTOMATED NEUTROPHIL # 7.4 TH/MM3 (1.8-7.7); BASOPHIL # 0.1 TH/MM3 (0-0.2); BASOPHIL % 0.7 % (0.0-2.0); EOSINOPHIL # 0.1 TH/MM3 (0-0.4); EOSINOPHIL % 1.1 % (0.0-4.0); HEMATOCRIT 28.3 % (39.0-51.0); HEMOGLOBIN 8.8 GM/DL (13.0-17.0); LYMPH % 10.3 % (9.0-44.0); LYMPHOCYTE # 1.1 TH/MM3 (1.0-4.8); MEAN CELL VOLUME 94.5 FL (80.0-100.0); MEAN CORPUSCULAR HEMOGLOBIN 29.5 PG (27.0-34.0); MEAN CORPUSCULAR HGB CONC 31.2 % (32.0-36.0); MEAN PLATELET VOLUME 7.6 FL (7.0-11.0); MONO % 14.7 % (0.0-8.0); MONOCYTE # 1.5 TH/MM3 (0-0.9); NEUT % 73.2 % (16.0-70.0); PLATELET COUNT 189 TH/MM3 (150-450); RED BLOOD COUNT 2.99 MIL/MM3 (4.50-5.90); RED CELL DISTRIBUTION WIDTH 14.6 % (11.6-17.2); WHITE BLOOD COUNT 10.2 TH/MM3 (4.0-11.0)
[2017-06-17] MEDS ORDERED: MORPHINE SULFATE 2 MG/ML INJ IV PUSH ONE (17:15)
[2017-06-17 17:18] LABS: CHLORIDE 103 MEQ/L (98-107); SODIUM (NA) 138 MEQ/L (136-145)
[2017-06-17 17:22] LABS: ALBUMIN 2.9 GM/DL (3.4-5.0); CALCIUM 8.7 MG/DL (8.5-10.1)
[2017-06-17 17:23] LABS: BICARBONATE 27.8 MEQ/L (21.0-32.0); BLOOD UREA NITROGEN 27 MG/DL (7-18); GLUCOSE,RANDOM 124 MG/DL (74-106)
[2017-06-17 17:26] LABS: ALT (GPT) 18 U/L (12-78); AST (GOT) 24 U/L (15-37); GLOMERULAR FILTRATION RATE 34 ML/MIN (>89)
[2017-06-17 17:28] LABS: TOTAL BILIRUBIN ADULT 0.6 MG/DL (0.2-1.0)
[2017-06-17 17:29] LABS: ALKALINE PHOSPHATASE 70 U/L (45-117)
--- NOTE | 2017-06-17 17:58 | RADRPT ---
EXAM DATE/TIME: 06/17/2017 17:38 [facility] COMPARISON: No previous studies available for comparison. INDICATIONS : Left leg swelling. MEDICAL HISTORY : Hypercholesterolemia. Hypertension. Chronic obstructive pulmonary disease. Anticoagulant therapy. Gastric ulcer. Hiatal hernia. BPH. Arthritis. SURGICAL HISTORY : Pacemaker. Bilateral cataract surgery. Oral surgery. Cardiac stent. Colon resection. ENCOUNTER: Initial ACUITY: 3 days PAIN SCORE: 4/10 LOCATION: Left leg. TECHNIQUE: Venous ultrasound of the leg was performed from the inguinal ligament to the proximal calf. Real-mariah e, color Doppler and spectral tracing, compression and augmentation techniques were used. FINDINGS: There is normal compressibility of the deep venous system from the inguinal region to the proximal ca lf. No echogenic clot is seen in the lumen of the common femoral, femoral, popliteal, and posterior tibial veins. There is a normal response of the venous system to proximal and distal augmentation an d respiration. CONCLUSION: Negative exam with no evidence of deep venous thrombosis. Angelo Rizo MD on June 17, 2017 at 17:53 Board Certified Radiologist. This report was verified electronically.
[2017-06-17 18:18] VITALS: BP 125/57; PULSE 57; RESP 18; O2SAT 98
[2017-06-17] MEDS ORDERED: IODIXANOL 320 MG/ML 10 ML VIAL (for Rad CT) IVCONTRAST ONE (18:25)
--- NOTE | 2017-06-17 19:03 | RADRPT ---
EXAM DATE/TIME: 06/17/2017 17:48 [facility] COMPARISON: CHEST SINGLE AP, May 02, 2017, 14:42. INDICATIONS : Back pain down to right leg IV CONTRAST: 50 cc Visipaque (iodixanol) IV RADIATION DOSE: 13.38 CTDIvol (mGy) MEDICAL HISTORY : Cardiovascular disease. gastric ulcer. SURGICAL HISTORY : Pacer, conon resection.Back surgery ENCOUNTER: Initial ACUITY: 1 day PAIN SCALE: 6/10 LOCATION: low back TECHNIQUE: Volumetric scanning was performed using a multi-row detector CT scanner. The data was post processed with a variety of visualization algorithms including full volume maximum intensity projection, multi -planar sliding thin slab reformation, curved planar reformation, and surface rendering techniques. Using automated exposure control and adjustment of the mA and/or kV according to patient size, radiat ion dose was kept as low as reasonably achievable to obtain optimal diagnostic quality images. DICOM format image data is available electronically for review and comparison. FINDINGS: Tortuosity and diffuse atherosclerotic plaque seen of the thoracic and abdominal portions of the aort a. Infrarenal abdominal aorta has a mildly prominent caliber, measures approximately 2.8 cm. There is atherosclerosis and mild aneurysmal dilatation of the bilateral common iliac arteries, 18 mm on the right and 16 mm on the left. No large aneurysms are demonstrated. There is no dissection. Moderate right and small left low attenuation pleural effusions are present. There is a broad area of infiltrate in the right upper lobe compatible with pneumonia. Smaller areas of infiltrate involve th e right lower and middle lobes. There are numerous mediastinal lymph nodes that measure up to 18 x 21 mm in size. Normal heart size. Cardiac pacer present. There is coronary artery calcification. Liver, spleen, pancreas and adrenal glands are within normal limits. Multiple peripelvic cysts are se en of both kidneys. No obstruction or acute inflammatory changes are seen of the gastrointestinal tra ct. There is nonspecific enlargement of the prostate. CONCLUSION: 1. Tortuous and atherosclerotic aorta without dissection or significant aneurysm. 2. 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 3. Patchy pneumonia on the right, upper lobe predominant. 4. Moderate right and small left pleural effusions, nonspecific. 5. There is nonspecific mediastinal lymphadenopathy. 6. Coronary artery calcification. Cardiac pacer present. Clinical management and surveillance for pneumonia and presumably reactive mediastinal adenopathy rec ommended. At a minimum, followup noncontrast chest CT should be done in approximately 3 months to ens ure resolution of pulmonary opacities and to recheck the mediastinal adenopathy. Moises Foss MD on June 17, 2017 at 18:54 Board Certified Radiologist. This report was verified electronically.
[2017-06-17 19:15] VITALS: BP 167/96; PULSE 71; RESP 16; O2SAT 98
[2017-06-17] MEDS ORDERED: ACETAMINOPHEN/HYDROcodone 325 MG/5 MG TAB PO ONE (19:15)
== END 2017-06-17 19:55 | disposition home or self-care (01) ==
LOC: PHEFT 15:00
DX: M51.16 Intervertebral disc disorders with radiculopathy, lumbar region (principal); G89.29 Other chronic pain; I73.9 Peripheral vascular disease, unspecified; I25.10 Atherosclerotic heart disease of native coronary artery without angina pectoris; R60.0 Localized edema; D64.9 Anemia, unspecified; M54.9 Dorsalgia, unspecified; E78.00 Pure hypercholesterolemia, unspecified; J44.0 Chronic obstructive pulmonary disease with (acute) lower respiratory infection; N40.0 Benign prostatic hyperplasia without lower urinary tract symptoms; Z95.0 Presence of cardiac pacemaker; Z95.5 Presence of coronary angioplasty implant and graft
CPT/HCPCS: 71275; 74174; 80053; 85025; 93971; 96374; 99285; J2270; Q9967